=== PATIENT | female | born 1955 | race Two or more races ===

== ENCOUNTER 2017-04-10 16:26 | Emergency (ER) | payer OTHER ==
[2017-04-10 16:30] VITALS: BP 102/75; PULSE 87; TEMP 98; BMI 27.4
--- NOTE | 2017-04-10 16:44 | PDOC ---
History of Present Illness - General Chief Complaint: Injury Stated Complaint: LT FOOT INJURY Time Seen by Provider: 04/10/17 16:29 History Source: Patient Exam Limitations: No Limitations - History of Present Illness Severity: reports: mild Past History - Travel Traveled outside of the country in the last 30 days: No Close contact w/someone who was outside of country & ill: No - Past Medical History Allergies/Adverse Reactions: Allergies Allergy/AdvReac Type Severity Reaction Status Date / Time No Known Allergies Allergy Verified 04/10/17 16:29 Diabetes: Yes (borderline) - Psycho/Social/Smoking Cessation Hx Anxiety: No Suicidal Ideation: No Smoking History: Never smoked Information on smoking cessation initiated: No Hx Alcohol Use: No Drug/Substance Use Hx: No Substance Use Type: None Review of Systems - Review of Systems Able to Perform ROS?: Yes Is the patient limited Nigerien proficient: Yes Constitutional: Yes: Symptoms Reported HEENTM: No: Symptoms Reported Respiratory: No: Symptoms reported Musculoskeletal: Yes: Symptoms Reported, See HPI, Joint Pain All Other Systems: Reviewed and Negative *Physical Exam - Vital Signs Last Vital Signs Temp Pulse Resp BP Pulse Ox 98 F 87 18 102/75 98 04/10/17 16:28 04/10/17 16:28 04/10/17 16:28 04/10/17 16:28 04/10/17 16:28 - Physical Exam General Appearance: Yes: Nourished, Appropriately Dressed, Apparent Distress, Mild Distress HEENT: positive: RAJEEV, TMs Normal Respiratory/Chest: positive: Lungs Clear Gastrointestinal/Abdominal: positive: Flat Musculoskeletal: positive: Normal Inspection. negative: Vertebral Tenderness Extremity: positive: Normal Capillary Refill, Swelling (mild swelling noted to the lateral aspect of left midfoot, no point tenderness to medial or lateral malleolus, no fifth metatarsal or navicular tenderness, neurovascular intact to toes. Negative squeeze test.). 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 Case, Aircast provided 600 mg of ibuprofen *DC/Admit/Observation/Transfer Diagnosis at time of Disposition: Left ankle sprain Qualifiers: Encounter type: initial encounter Involved ligament of ankle: unspecified ligament Qualified Code(s): S93.402A - Sprain of unspecified ligament of left ankle, initial encounter - Discharge Dispostion Disposition: HOME Condition at time of disposition: Stable Admit: No - Referrals Referrals: STAFF,NOT ON [Primary Care Provider] - Clovis Tinsley MD [Staff Physician] - - Patient Instructions Printed Discharge Instructions: DI for Ankle Sprain Additional Instructions: Rest, ice to area on and off for 15 minutes 4-6 times a day Avoid heavy lifting or exercise until pain and swelling is resolved or until further directed Keep area highly elevated to reduce swelling Use splints/Alexx wrap as directed Followup with orthopedist in one to 2 days if not improving, if significantly improved may wait one week for followup with orthopedist May use ibuprofen 2-200 mg tablets every 6 hours as needed for pain - Post Discharge Activity Work/School Note: Back to Work
[2017-04-10] MEDS ORDERED: IBUPROFEN 600 MG TABLET (FP) PO ONE (17:05)
== END 2017-04-10 17:32 | disposition home or self-care (01) ==
LOC: JERFT 16:26
PROC: 2W3RX1Z Immobilization of Left Lower Leg using Splint (ICD-10-PCS; principal; 2017-04-10)
DX: S93.402A Sprain of unspecified ligament of left ankle, initial encounter (principal); Y99.8 Other external cause status
CPT/HCPCS: 29515; 73610-TC-LT; 73630-TC-LT; 99281-25

== ENCOUNTER 2017-06-14 07:44 | Day surgery (SDC) | payer OTHER ==
[2017-06-08 11:47] VITALS: BMI 28.3
[2017-06-14] MEDS ORDERED: PROPOFOL 20 ML ONE ×2 (07:48)
[2017-06-14] MEDS ORDERED: LIDOCAINE HCL/PF 2% SDV 5ML VIAL ONE (07:49)
[2017-06-14 10:13] VITALS: TEMP 97.9
[2017-06-14 10:35] VITALS: BP 132/63; PULSE 72
--- NOTE | 2017-06-18 15:42 | PATH ---
Surgical Pathology Report Patient Name: TATYANA THAO [facility] [place]. Rec. #: [id number] /Age/Gender: 1955 (Age: 61) / F Account: [id number] Location: [facility]-ENDOSCOPY Taken: 06/14/2017 Received: 06/14/2017 Reported: 06/18/2017 Physicians: Kalen Layton M.D. Specimen(s) Received BX CECUM Clinical History Rule out colon cancer Polyp Final Diagnosis CECUM, BIOPSY: COLONIC BECAUSE THE SHOWING MILD SURFACE HYPERPLASTIC CHANGE AND SMALL BENIGN/REACTIVE LYMPHOID AGGREGATE. Electronically Signed Lorraine Parisi M.D. Gross Description Received in formalin, labeled "cecum" is a camarena, irregular portion of soft tissue measuring 0.2 cm. in greatest dimension. The specimen is submitted in toto in one cassette. 06/15/201706/15/2017
== END 2017-06-14 10:30 | disposition home or self-care (01) ==
LOC: FASU-ENDO 07:44
PROVIDERS: ATTEND Internal Medicine Gastroenterology
PROC: 0DBH8ZX Excision of Cecum, Via Natural or Artificial Opening Endoscopic, Diagnostic (ICD-10-PCS; principal; 2017-06-14 09:24)
DX: Z12.11 Encounter for screening for malignant neoplasm of colon (principal); D12.0 Benign neoplasm of cecum; K57.30 Diverticulosis of large intestine without perforation or abscess without bleeding; K63.89 Other specified diseases of intestine
CPT/HCPCS: 88305-TC

== ENCOUNTER 2017-10-08 12:55 | Emergency (ER) | payer OTHER ==
[2017-10-08 13:11] VITALS: BMI 28.3
[2017-10-08 13:43] LABS: BASO % 0.9 % (0-2.0); EOS % 5.8 % (0-4.5); HEMATOCRIT 40.1 % (32.4-45.2); HEMOGLOBIN 13.7 GM/dL (10.7-15.3); LYMPH % 34.4 % (8-40); MCH 29.6 pg (25.7-33.7); MEAN PLT VOLUME 9.4 fl (7.5-11.1); MONO % 6.3 % (3.8-10.2); NEUT % 52.6 % (42.8-82.8); PLATELET COUNT 228 K/MM3 (134-434); RBC 4.62 M/mm3 (3.60-5.2); RDW 13.1 % (11.6-15.6); WHITE BLOOD COUNT 6.7 K/mm3 (4.0-10.0)
--- NOTE | 2017-10-08 13:53 | PDOC ---
History of Present Illness - General Chief Complaint: Chest Pain Stated Complaint: CHEST PAIN Time Seen by Provider: 10/08/17 13:18 History Source: Patient Exam Limitations: No Limitations - History of Present Illness Initial Comments: 10/08/17 13:46 Patient is a 62F with a history of varicose veins here today complaining of chest pain. She says the pain started two hours ago and describes it as a squeezing pain. She states it gets worse with inspiration. She does not know if it worsens with exertion or improves with rest, as she hasn't moved much since having the pain. She states that she flew from [place] to [facility] 6 days ago, and has had some pain in left posterior calf with swelling. She denies history of blood clots. Past History - Past Medical History Allergies/Adverse Reactions: Allergies Allergy/AdvReac Type Severity Reaction Status Date / Time hazelnut Allergy Severe Verified 10/08/17 13:09 No Known Drug Allergies Allergy Difficulty Verified 10/08/17 13:09 Breathing,SWELLING Home Medications: Ambulatory Orders Multivitamins [Tab-A-Vit -] 1 tab PO DAILY 06/08/17 Anemia: No Asthma: No Cancer: No Cardiac Disorders: No CVA: No COPD: No CHF: No Dementia: No Diabetes: No (borderline) GI Disorders: Yes (DIVERTICULOSIS) Disorders: No HTN: No Hypercholesterolemia: No (NOT ON MEDS) Liver Disease: No Seizures: No Thyroid Disease: No - Surgical History Abdominal Surgery: No Appendectomy: No Cardiac Surgery: No Cholecystectomy: No Lung Surgery: No Neurologic Surgery: No Orthopedic Surgery: No - Suicide/Smoking/Psychosocial Hx Smoking History: Never smoked Have you smoked in the past 12 months: No Hx Alcohol Use: No Drug/Substance Use Hx: No Substance Use Type: None Hx Substance Use Treatment: No Review of Systems - Review of Systems Comments:: 10/08/17 13:50 GENERAL/CONSTITUTIONAL: No fever or chills. No weakness. HEAD, EYES, EARS, NOSE AND THROAT: No change in vision. No sore throat. CARDIOVASCULAR: Positive for chest pain and shortness of breath RESPIRATORY: No cough, wheezing, or hemoptysis. GASTROINTESTINAL: No nausea, vomiting, diarrhea or constipation. GENITOURINARY: No dysuria, frequency, or change in urination. MUSCULOSKELETAL: Positive for left leg pain. No neck or back pain. SKIN: No rash NEUROLOGIC: No headache, vertigo, loss of consciousness, or change in strength/ sensation. ENDOCRINE: No increased thirst. No abnormal weight change HEMATOLOGIC/LYMPHATIC: No anemia, easy bleeding, or history of blood clots. ALLERGIC/IMMUNOLOGIC: No hives or skin allergy. *Physical Exam - Vital Signs Last Vital Signs Temp Pulse Resp BP Pulse Ox 97.3 F L 69 18 118/55 99 10/08/17 13:10 10/08/17 13:10 10/08/17 13:10 10/08/17 13:10 10/08/17 13:10 - Physical Exam Comments: 10/08/17 13:50 GENERAL: Awake, alert, and fully oriented, in no acute distress HEAD: No signs of trauma, normocephalic, atraumatic EYES: PERRLA, EOMI, sclera anicteric, conjunctiva clear ENT: Auricles normal inspection, hearing grossly normal, nares patent, oropharynx clear without exudates. Moist mucosa NECK: Normal ROM, supple, no lymphadenopathy, JVD, or masses LUNGS: No distress, speaks full sentences, clear to auscultation bilaterally HEART: Regular rate and rhythm, normal S1 and S2, no murmurs, rubs or gallops, peripheral pulses normal and equal bilaterally. ABDOMEN: Soft, nontender, normoactive bowel sounds. No guarding, no rebound. No masses LEFT LEG: Tender to palpation in posterior calf, pain with flexion of foot, varicose veins NEUROLOGICAL: Cranial nerves II through XII grossly intact. Normal speech, no focal sensorimotor deficits SKIN: Warm, Dry, normal turgor, no rashes or lesions noted. ED Treatment Course - LABORATORY CBC & Chemistry Diagram: 10/08/17 13:30 10/08/17 13:30 - RADIOLOGY Radiology Studies Ordered: Category Date Time Status CHEST CTA [CT] Stat CT Scan 10/08/17 13:31 Ordered CHEST X-RAY PORTABLE* [RAD] Stat Radiology 10/08/17 13:31 Ordered DUPLEX VASCUL US-1 LEG [US] Stat Ultrasound 10/08/17 13:31 Ordered Medical Decision Making - Medical Decision Making 10/08/17 13:51 62F with history of varicose veins here today complaining of chest pain. Vital signs stable and normal. Differential diagnosis includes, but is not limited to : ACS, PE, DVT. Will evaluate with cbc, cmp, pt/inr, trop, ekg, cxr. Will do CTA , believe patient is high risk Well's. EKG shows normal sinus rhythm with normal rate = 71bpm. Normal axis. No st elevations/depressions. No significant t wave abnormalities. Normal QRS/QTc/OH intervals. 10/08/17 15:31 Laboratory Tests 10/08/17 10/08/17 10/08/17 13:30 13:30 13:30 WBC 6.7 Hgb 13.7 Hct 40.1 Plt Count 228 INR 1.00 D-Dimer BUN 21 H Creatinine 0.6 Creat Clearance w eGFR > 60 Troponin I 0.02 10/08/17 13:30 WBC Hgb Hct Plt Count INR D-Dimer 245 BUN Creatinine Creat Clearance w eGFR Troponin I CBC normal. Troponin detectable at 0.02. D-dimer negative, but too high of risk to rule out. BUN/Cr normal. US shows no DVT. CTA pending. 10/08/17 18:29 On re-evaluation patient reports her chest pain has resolved. Second trop drawn. CTA shows no evidence of PE. Nonspecific left upper lobe pulmonary nodule (suggests 3 month follow up) and nonspecific 0.7cm right hepatic lobe low attenuation, correlate with nonemergent sonography or MRI. Patient informed of results, given copy of report, instructed to follow up with PCP. 10/08/17 18:47 Second trop negative. Will discharge with return precautions, pcp and cardiology follow up. *DC/Admit/Observation/Transfer Diagnosis at time of Disposition: Chest pain - Discharge Dispostion Disposition: HOME Condition at time of disposition: Good Admit: No - Referrals Referrals: Osiris Munson MD [Primary Care Provider] - David Lorenzo MD [Staff Physician] - - Patient Instructions Printed Discharge Instructions: DI for Chest Pain Additional Instructions: Your CT scan today showed a lung nodule and a liver nodule. These must both be followed up by your primary doctor, as if they grow in size, it could represent cancer. If you experience recurrent chest pain, shortness of breath, or any other concerning symptoms, return to the ER immediately. Otherwise, follow up with a filament welder within 1 week for further evaluation of your chest pain. Call the number provided to make an appointment with our filament welder. - Post Discharge Activity
[2017-10-08 14:10] LABS: ALBUMIN 3.5 g/dl (3.4-5.0); ANION GAP 11 (8-16); BILIRUBIN,TOTAL 0.7 mg/dL (0.2-1.0); BLOOD UREA NITROGEN 21 mg/dL (7-18); CALCIUM 9.1 mg/dL (8.5-10.1); CHLORIDE 104 mmol/L (98-107); CO2 26 mmol/L (21-32); CREATININE 0.6 mg/dL (0.55-1.02); GLUCOSE,RANDOM 94 mg/dL (74-106); POTASSIUM 4.3 mmol/L (3.5-5.1); SGOT/AST 15 U/L (15-37); SGPT/ALT 21 U/L (12-78); SODIUM 141 mmol/L (136-145); TOT PROT 6.7 g/dl (6.4-8.2)
[2017-10-08 14:12] LABS: ALK PHOS 62 U/L (45-117); PROTHROMBIN TIME (PATIENT) 11.3 SEC (9.98-11.88)
--- NOTE | 2017-10-08 15:05 | PDOC ---
Attending Attestation - Resident Resident Name: James Lim - ED Attending Attestation I have performed the following: I have examined & evaluated the patient, The case was reviewed & discussed with the resident, I agree w/resident's findings & plan, Exceptions are as noted - HPI HPI: 10/08/17 14:52 "The patient is a 62 year old female with a significant PMH of diverticulosis who presents to the emergency department with chest pain beginning approximately 2 hours ago. The patient notes her chest pain is worse with deep inspiration. EMS reports giving the patient aspirin and Nitro in the field to some relief. Does not know if pain is exertional. Denies SOB. Patient reports flying in from [place] about 6 days ago. Pt also notes swelling in her R calf. Allergies: NKDA - Physicial Exam PE: 10/08/17 14:53 "GENERAL: Awake, alert, and fully oriented, in no acute distress HEAD: No signs of trauma EYES: PERRLA, EOMI, sclera anicteric, conjunctiva clear ENT: Auricles normal inspection, hearing grossly normal, nares patent, oropharynx clear without exudates. Moist mucosa NECK: Nontender, no stepoffs, Normal ROM, supple, no lymphadenopathy, JVD, or masses LUNGS: Breath sounds equal, clear to auscultation bilaterally. No wheezes, and no crackles HEART: Regular rate and rhythm, normal S1 and S2, no murmurs, rubs or gallops ABDOMEN: Soft, nontender, normoactive bowel sounds. No guarding, no rebound. No masses EXTREMITIES: Normal range of motion, no edema. No clubbing or cyanosis. No cords, erythema, or tenderness NEUROLOGICAL: Cranial nerves II through XII intact. 5/5 strength and sensation in all extremities, Normal speech, normal gait, normal cerebellar function SKIN: Warm, Dry, normal turgor, no rashes or lesions noted. " - Medical Decision Making 10/08/17 15:06 62 F with pleuritic chest pain and R calf swelling. Concerning for DVT/PE. ACS also a consideration, though EKG without any signs of ischemia. - Labs, trop, ddimer - CXR - CTA chest 10/08/17 18:11 Labs wnl, trop negative x 1 Will send 2nd troponin at this time. Pending read of chest CT. 10/08/17 18:29 CTA chest negative for PE. Pt informed of lung and liver nodules. She expresses understanding that she needs to have this followed up. Pt with HEART score 2. Suspicion for cardiac event very low. Pt reassessed - now has complete resolution of her chest pain. Pt is well appearing with normal vitals, clinically stable for DC. I discussed the physical exam findings, ancillary test results and final diagnoses with the patient. I answered all of the patient's questions. The patient was satisfied with the care received and felt comfortable with the discharge plan and treatment plan. The patient agrees to follow up with the primary care physician within 24-72 hours. Heart Score/ECG Review - History History: Moderately suspicious - Electrocardiogram EKG: Normal - Age Age: 45-65 - Risk Factors Based on the list above the patient has:: No risk factors known - Troponin Troponin: </= normal limit - Score Heart Score - Total: 2 - ECG Impressions Comment:: 10/08/17 15:06 NSR, no RUPALI/STDs, no TWIs, axis wnl, intervals wnl, rate 71
--- NOTE | 2017-10-08 15:47 | EKG ---
Test Reason : Blood Pressure : / mmHG Vent. Rate : 071 BPM Atrial Rate : 071 BPM P-R Int : 122 ms QRS Dur : 074 ms QT Int : 392 ms P-R-T Axes : 056 007 029 degrees QTc Int : 425 ms NORMAL SINUS RHYTHM NORMAL ECG NO PREVIOUS ECGS AVAILABLE Confirmed by DAHLIA GARG MD ([id number]) on 10/08/2017 3:46:32 PM Referred By: Confirmed By:DAHLIA GARG MD
[2017-10-08 18:03] VITALS: BP 110/57; PULSE 83; TEMP 98.1
== END 2017-10-08 18:57 | disposition home or self-care (01) ==
LOC: JER 12:55
DX: R07.89 Other chest pain (principal)
CPT/HCPCS: 36415; 71045-TC-FY; 71275-TC; 80053; 82550; 83735; 84484; 85025; 85379; 85610; 93005; 93010; 93970-TC; 99285-25